=== PATIENT | female | born 1945 | race Caucasian/White ===

== ENCOUNTER 2017-10-16 19:13 | Emergency (ER) | payer MEDICARE, BC ==
[2017-10-16] MEDS ORDERED: Ibuprofen 600 MG TAB ONE (19:40)
[2017-10-16] MEDS ORDERED: Acetaminophen 500 MG TAB ONE (19:40)
[2017-10-16 19:46] LABS: Bilirubin Negative (Negative); Blood, Urine Moderate (Negative); Clarity Cloudy (Clear); Glucose, Urine (Dipstick) Negative (Negative); Leukocyte Large (Negative); Nitrite Negative (Negative); Protein, Urine (Dipstick) 30 mg/dL (Neg-Trace); Urobilinogen 0.2 mg/dL (0.2-1.0); pH, Urine 6.5 (5.0-9.0)
[2017-10-16 19:51] LABS: Bacteria/HPF 2+ HPF (None Seen); Renal Epithelial 0-3 HPF (0-3); Squamous Epithelial 0-3 HPF (0-3); Yeast-All Forms 2+ HPF (None Seen)
[2017-10-16 19:52] LABS: Oval Fat Bodies/HPF 1+ HPF (None Seen)
[2017-10-16] MEDS ORDERED: Fluconazole 100 MG TAB ONE (20:39)
== END 2017-10-16 21:13 | disposition home or self-care (01) ==
LOC: SCSER 19:13
DX: B37.41 Candidal cystitis and urethritis (principal)
CPT/HCPCS: 81003; 81015; 87086; 99283

== ENCOUNTER 2018-05-08 12:40 | Outpatient (CLI) | payer MEDICARE, BC | END 2018-05-08 12:41 | disposition home or self-care (01) | LOC: ULT 12:40 | PROVIDERS: ATTEND Internal Medicine Hematology & Oncology | DX: Z51.11 Encounter for antineoplastic chemotherapy (principal); C56.2 Malignant neoplasm of left ovary; I08.3 Combined rheumatic disorders of mitral, aortic and tricuspid valves | CPT/HCPCS: 93306 ==

== ENCOUNTER 2020-03-17 14:13 | Outpatient (CLI) | payer MEDICARE, BC ==
--- NOTE | 2020-03-17 15:14 | ULT ---
Bilateral renal ultrasound CLINICAL INDICATION: Malignant neoplasm left ovary. Renal insufficiency. COMPARISON: None FINDINGS: Right kidney: There is no evidence of a renal mass, renal calculus, or hydronephrosis seen. The right kidney measures 11.2 cm x 5.1 cm. Left kidney: Left kidney measures 9.9 cm x 5.1 cm. There is evidence of renal cortical thinning with lobulated margin of the left kidney which may be related to renal scarring. There does appear to be mild left hydronephrosis. A linear echogenic area is seen in the region of the left renal pelvis whic h is difficult to further evaluate on this exam. This could potentially represent a ureteral stent if the patient has ureteral stent in place. Calculus is also a differential consideration. Urinary bladder: Incompletely imaged. Linear echogenic structure seen in the region urinary bladder w hich may represent partial visualization of a ureteral stent. IMPRESSION: 1. Mild left hydronephrosis. Echogenic structure is seen in the left renal pelvis which may represent a ureteral stent in place. However this clinical correlation is recommended. This difficult to definitely confirm on sonographic evaluation. 2. Renal cortical thinning and cortical scarring involving the left kidney. 3. Normal appearance of right kidney without hydronephrosis. 4. Urinary bladder completely decompressed.
== END 2020-03-17 14:14 | disposition home or self-care (01) ==
LOC: SCSULT 14:13
PROVIDERS: ATTEND Internal Medicine Hematology & Oncology
DX: N28.89 Other specified disorders of kidney and ureter (principal); C56.2 Malignant neoplasm of left ovary; N13.30 Unspecified hydronephrosis
CPT/HCPCS: 76770

== ENCOUNTER 2022-05-21 12:01 | Emergency (ER) | payer MEDICARE, BC ==
[2022-05-21] MEDS ORDERED: Pancrelipase DR 12,000 1 CAP PO SCH (16:00)
[2022-05-21] MEDS ORDERED: Sodium Bicarbonate Tab 325 MG TAB PO SCH (16:45)
== END 2022-05-21 17:44 | disposition home or self-care (01) ==
LOC: ERS 12:01
DX: K94.23 Gastrostomy malfunction (principal); I10 Essential (primary) hypertension
CPT/HCPCS: 74022